=== PATIENT | female | born 1980 | race Native Hawaiian/Other Pacific Islander ===

== ENCOUNTER → 2017-05-15 | Outpatient (CLI) | payer BC ==
[2017-05-15 13:18] LABS: HCT 47.1 % (34.0-46.0); HGB 15.1 gm/dL (11.4-16.0); MCH 27.2 pg (25.0-35.0); MCHC 32.1 g/dL (31.0-37.0); MCV 84.6 fL (80.0-100.0); Mean Platelet Volume 6.9; Platelet Count 280 k/uL (150-450); RBC 5.57 m/uL (3.80-5.40); RDW 13.8 % (11.5-15.5); WBC 8.9 k/uL (3.8-10.6)
[2017-05-15 13:25] LABS: Glucose 77 mg/dL (74-99)
[2017-05-15 20:17] LABS: HIV AB P24 Non-Reactive (Non-Reactive); HIV P24 AG Non-Reactive (Non-Reactive)
[2017-05-16 05:12] LABS: Toxoplasma Antibody (IgG) <3.0 IU/mL (<7.2); Toxoplasma Antibody (IgM) <3.0 AU/mL (<8.0)
== END | disposition home or self-care (01) ==
LOC: LABWHC1 12:13
PROVIDERS: ATTEND Obstetrics & Gynecology
DX: O26.811 Pregnancy related exhaustion and fatigue, first trimester (principal); Z3A.00 Weeks of gestation of pregnancy not specified
CPT/HCPCS: 36415; 82565; 82947; 85027; 86762; 86777; 86778; 86780; 86850; 86900; 86901; 87340; 87390

== ENCOUNTER 2017-06-03 07:21 | Emergency (ER) | payer BC ==
[2017-06-03] MEDS ORDERED: SODIUM CHLORIDE 0.9% 1,000 ML IV STA (08:19)
--- NOTE | 2017-06-03 08:22 | ED ---
General Adult HPI - General Chief complaint: Abdominal Pain Stated complaint: cramping; 13 weeks pg Time Seen by Provider: 06/03/17 08:12 Source: patient, RN notes reviewed Mode of arrival: ambulatory Limitations: no limitations - History of Present Illness Initial comments: 37-year-old female presents to the emergency department with a chief complaint of abdominal cramping and . Patient states that she is about 15 weeks . 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 Patient states that she started to have this cramping about a week ago. There has been no vaginal bleeding or changes in discharge. Patient denies any nausea vomiting any fever or chills. Patient states she was concerned due to her continued cramping so she thought that she should be evaluated. She states that her CAREER SERVICES OFFICER is Dr. Ruiz. She denies any other symptoms with this at this time. She was concerned due to the continued cramping so she thought that she should be evaluated. Patient denies any recent fever, chills, shortness of breath, chest pain, back pain,nausea vomiting, numbness or tingling, dysuria or hematuria, constipation or diarrhea, headaches or visual changes, or any other current symptoms. - Related Data Allergies Allergy/AdvReac Type Severity Reaction Status Date / Time Penicillins Allergy Unknown Verified 06/03/17 07:29 Sulfa (Sulfonamide Allergy Unknown Verified 06/03/17 07:29 Antibiotics) Review of Systems ROS Statement: Those systems with pertinent positive or pertinent negative responses have been documented in the HPI. ROS Other: All systems not noted in ROS Statement are negative. Past Medical History Past Medical History: Asthma History of Any Multi-Drug Resistant Organisms: None Reported Past Surgical History: Section, Orthopedic Surgery Additional Past Surgical History / Comment(s): nasal Past Psychological History: No Psychological Hx Reported Smoking Status: Never smoker Past Alcohol Use History: Occasional Past Drug Use History: None Reported General Exam - General Exam Comments Initial Comments: General: The patient is awake and alert, in no distress, and does not appear acutely ill. Eye: Pupils are equal, round and reactive to light, extra-ocular movements are intact; there is normal conjunctiva bilaterally. No signs of icterus. Ears, nose, mouth and throat: There are moist mucous membranes. Neck: The neck is supple, there is no tenderness. Cardiovascular: There is a regular rate and rhythm. No murmur, rub or gallop is appreciated. Respiratory: Lungs are clear to auscultation, respirations are non-labored, breath sounds are equal. No wheezes, stridor, rales, or rhonchi. Gastrointestinal: Soft, non-distended, non-tender abdomen without masses or organomegaly noted. There is no rebound or guarding present. No CVA tenderness. Bowel sounds are unremarkable. Back: There is no tenderness to palpation in the midline. There is no obvious deformity. No rashes noted. Musculoskeletal: Normal ROM, no tenderness, There is no pedal edema. There is no calf tenderness or swelling. Sensation intact. Pulses equal bilaterally 2+. Neurological: CN II-XII intact, There are no obvious motor or sensory deficits. Coordination appears grossly intact. Speech is normal. Skin: Skin is warm and dry and no rashes or lesions are noted. Psychiatric: Cooperative, appropriate mood & affect, normal judgment. Limitations: no limitations Course Vital Signs 06/03/17 07:26 Temperature 98.1 F Pulse Rate 90 Respiratory 20 Rate Blood Pressure 128/93 O2 Sat by Pulse 100 Oximetry - Reevaluation(s) Reevaluation #1: 06/03/17 09:52 Patient is found to be Rh-. Patient has no bleeding here. At this time patient informed follow-up with her doctor and return if any bleeding occurs. Medical Decision Making - Medical Decision Making 37-year-old female presents to the emergency department with a chief complaint of abdominal cramping in . This and ultrasound is reviewed that does show placenta previa otherwise stable 15 week old fetus. At this time we did discuss that she follow up with her CAREER SERVICES OFFICER and shows appear acutely. We discussed nothing vaginally in to speak with her doctor regarding additional recommendations. We did discuss follow-up we discussed return parameters all questions. Patient stated that she understood and she is agreement this plan. She continues to have no vaginal bleeding. All questions have been answered. She will be discharged. - Lab Data Result diagrams: 06/03/17 08:30 06/03/17 08:30 Lab Results 06/03/17 06/03/17 06/03/17 Range/Units 07:53 08:30 08:30 WBC 7.5 (3.8-10.6) k/uL RBC 4.90 (3.80-5.40) m/uL Hgb 13.5 (11.4-16.0) gm/dL Hct 41.5 (34.0-46.0) % MCV 84.7 (80.0-100.0) fL MCH 27.5 (25.0-35.0) pg MCHC 32.4 (31.0-37.0) g/dL RDW 13.9 (11.5-15.5) % Plt Count 288 (150-450) k/uL Neutrophils % 68 % Lymphocytes % 23 % Monocytes % 5 % Eosinophils % 2 % Basophils % 0 % Neutrophils # 5.1 (1.3-7.7) k/uL Lymphocytes # 1.7 (1.0-4.8) k/uL Monocytes # 0.4 (0-1.0) k/uL Eosinophils # 0.2 (0-0.7) k/uL Basophils # 0.0 (0-0.2) k/uL Sodium (137-145) mmol/L Potassium (3.5-5.1) mmol/L Chloride (98-107) mmol/L Carbon Dioxide (22-30) mmol/L Anion Gap mmol/L BUN (7-17) mg/dL Creatinine (0.52-1.04) mg/dL Est GFR (MDRD) Af Amer (>60 ml/min/1.73 sqM) Est GFR (MDRD) Non-Af (>60 ml/min/1.73 sqM) Glucose (74-99) mg/dL Calcium (8.4-10.2) mg/dL Total Bilirubin (0.2-1.3) mg/dL AST (14-36) U/L ALT (9-52) U/L Alkaline Phosphatase (38-126) U/L Total Protein (6.3-8.2) g/dL Albumin (3.5-5.0) g/dL Urine Color Yellow Urine Appearance Clear (Clear) Urine pH 6.5 (5.0-8.0) Ur Specific [place] 1.017 (1.001-1.035) Urine Protein Trace H (Negative) Urine Glucose (UA) Negative (Negative) Urine Ketones Negative (Negative) Urine Blood Negative (Negative) Urine Nitrite Negative (Negative) Urine Bilirubin Negative (Negative) Urine Urobilinogen <2.0 (<2.0) mg/dL Ur Leukocyte Esterase Negative (Negative) Blood Type O Negative Blood Type Recheck No 06/03/17 Range/Units 08:30 WBC (3.8-10.6) k/uL RBC (3.80-5.40) m/uL Hgb (11.4-16.0) gm/dL Hct (34.0-46.0) % MCV (80.0-100.0) fL MCH (25.0-35.0) pg MCHC (31.0-37.0) g/dL RDW (11.5-15.5) % Plt Count (150-450) k/uL Neutrophils % % Lymphocytes % % Monocytes % % Eosinophils % % Basophils % % Neutrophils # (1.3-7.7) k/uL Lymphocytes # (1.0-4.8) k/uL Monocytes # (0-1.0) k/uL Eosinophils # (0-0.7) k/uL Basophils # (0-0.2) k/uL Sodium 138 (137-145) mmol/L Potassium 4.4 (3.5-5.1) mmol/L Chloride 105 (98-107) mmol/L Carbon Dioxide 24 (22-30) mmol/L Anion Gap 9 mmol/L BUN 9 (7-17) mg/dL Creatinine 0.42 L (0.52-1.04) mg/dL Est GFR (MDRD) Af Amer >60 (>60 ml/min/1.73 sqM) Est GFR (MDRD) Non-Af >60 (>60 ml/min/1.73 sqM) Glucose 80 (74-99) mg/dL Calcium 9.4 (8.4-10.2) mg/dL Total Bilirubin 0.6 (0.2-1.3) mg/dL AST 22 (14-36) U/L ALT 20 (9-52) U/L Alkaline Phosphatase 52 (38-126) U/L Total Protein 6.5 (6.3-8.2) g/dL Albumin 3.8 (3.5-5.0) g/dL Urine Color Urine Appearance (Clear) Urine pH (5.0-8.0) Ur Specific [place] (1.001-1.035) Urine Protein (Negative) Urine Glucose (UA) (Negative) Urine Ketones (Negative) Urine Blood (Negative) Urine Nitrite (Negative) Urine Bilirubin (Negative) Urine Urobilinogen (<2.0) mg/dL Ur Leukocyte Esterase (Negative) Blood Type Blood Type Recheck - Radiology Data Radiology results: report reviewed, image reviewed Disposition Clinical Impression: Abdominal cramping affecting , Placenta previa Disposition: HOME SELF-CARE Condition: Stable Instructions: Placenta Previa (ED) Additional Instructions: Please use medication as discussed. Please follow up with family doctor if symptoms have not improved over the next two days. Please return to the emergency room if your symptoms increase or worsen or for any other concerns. Referrals: Raphael Ruiz MD [STAFF PHYSICIAN] - 1-2 days Time of Disposition: 09:52
[2017-06-03 08:32] LABS: Appearance,Urine Clear (Clear); Bilirubin,Urine Negative (Negative); Blood,Urine Negative (Negative); Color,Urine Yellow; Glucose,Urine (UA) Negative (Negative); Ketones,Urine Negative (Negative); Leukocyte Esterase,Urine Negative (Negative); Nitrite,Urine Negative (Negative); PH, Urine 6.5 (5.0-8.0); Protein,Urine Trace (Negative); Specific Gravity,Urine 1.017 (1.001-1.035); Urobilinogen,Urine <2.0 mg/dL (<2.0)
[2017-06-03 08:46] LABS: Basophils % (A) 0 %; Eosinophils # (A) 0.2 k/uL (0-0.7); Eosinophils % (A) 2 %; HCT 41.5 % (34.0-46.0); HGB 13.5 gm/dL (11.4-16.0); Lymphocytes # (A) 1.7 k/uL (1.0-4.8); Lymphocytes % (A) 23 %; MCH 27.5 pg (25.0-35.0); MCHC 32.4 g/dL (31.0-37.0); MCV 84.7 fL (80.0-100.0); Mean Platelet Volume 6.4; Monocytes # (A) 0.4 k/uL (0-1.0); Monocytes % (A) 5 %; Neutrophils # (A) 5.1 k/uL (1.3-7.7); Neutrophils % (A) 68 %; Platelet Count 288 k/uL (150-450); RDW 13.9 % (11.5-15.5); WBC 7.5 k/uL (3.8-10.6)
[2017-06-03 08:55] LABS: ALT 20 U/L (9-52); AST 22 U/L (14-36); Albumin 3.8 g/dL (3.5-5.0); Alkaline Phosphatase 52 U/L (38-126); Blood Urea Nitrogen 9 mg/dL (7-17); Calcium 9.4 mg/dL (8.4-10.2); Carbon Dioxide 24 mmol/L (22-30); Glucose 80 mg/dL (74-99); Potassium 4.4 mmol/L (3.5-5.1); Sodium 138 mmol/L (137-145); Total Bilirubin 0.6 mg/dL (0.2-1.3); Total Protein 6.5 g/dL (6.3-8.2)
[2017-06-03 08:59] LABS: Anion Gap 9 mmol/L; Chloride 105 mmol/L (98-107)
--- NOTE | 2017-06-03 09:30 | US ---
EXAMINATION TYPE: US OB >= 14 wk fetus DATE OF EXAM: 06/03/2017 COMPARISON: None CLINICAL HISTORY: Pain; EC patient with pelvic pain x 6 days; this via in vitro fertilizati on; TECHNIQUE: Transabdominal (TA) GESTATIONAL AGE / DATING Physician Established: (15 weeks/2 days) EDC: 11/23/2017 Dates by LMP: LMP unknown Dates by First Scan: No previous here; this is first scan Dates by Current Scan: (15 weeks/5 days) EDC: 11/20/2017 Beta HCG (if available): Not available at this time SURVEY IUP: Single PLACENTA: Posterior; anechoic area = 1.9 x 1.5 x 0.5cm is noted inferiorly and posterior to placenta on image # [id number] and may be subchorionic bleed vs. vessels vs. incomplete fusion of amniotic sac with gestational sac wall and is usually fused by 16 weeks gestation. PREVIA: Complete NAOMI: 8.7 cm may be normal for < 16 weeks when > 16 weeks NAOMI is quantified. CERVICAL LENGTH (transabdominal: norm > 3.0cm): 3.2 cm BIOMETRY PRESENTATION: Breech LIE: Longitudinal BPD: 3.1 cm 15 weeks / 6 days HC: 11.6 cm 15 weeks / 5 days AC: 9.4 cm 15 weeks / 4 days FL: 1.8 cm 15 weeks / 2 days ESTIMATED WEIGHT IN GRAMS: 125.2 grams ESTIMATED WEIGHT IN LBS/OZ: 0 lbs. 4 oz. WEIGHT PERCENTAGE BASED ON ESTABLISHED DATES: 51.4% HC/AC: 1.24 Normal FL/AC: 19.19 Normal HEART RATE: 147 bpm RHYTHM: Normal Single, live IUP,15 weeks/5 days, EDC: 11/20/2017, HR 147 bpm; placenta previa is noted early 2nd tri mester. IMPRESSION: VIABLE INTRAUTERINE GESTATION WITH A GESTATIONAL AGE OF 15 WEEKS 5 DAYS +/- 7 DAYS. ESTIMATED DATE OF CONFINEMENT BASED ON THIS EXAMINATION IS 11/20/2017. NOTE IS MADE OF A PLACENTA PREVIA. FURTHER IMAGING IN THE THIRD TRIMESTER WOULD BE SUGGESTED TO [facility] ASSESS PLACENTAL POSITIONING. SMALL LUCENCY BETWEEN THE PLACENTA AND THE POSTERIOR WALL OF THE UTERUS IS OF QUESTIONABLE ETIOLOGY. THIS CAN ALSO BE ASSESSED AT FOLLOW-UP.
[2017-06-03 10:10] VITALS: BP 128/84; PULSE 88; RESP 18; TEMP 97.8
== END 2017-06-03 10:07 | disposition home or self-care (01) ==
LOC: EC 07:21
DX: O26.892 Other specified pregnancy related conditions, second trimester (principal); R10.9 Unspecified abdominal pain; O44.02 Complete placenta previa NOS or without hemorrhage, second trimester; Z67.91 Unspecified blood type, Rh negative; Z88.0 Allergy status to penicillin; Z88.2 Allergy status to sulfonamides; Z98.890 Other specified postprocedural states; Z3A.15 15 weeks gestation of pregnancy
CPT/HCPCS: 36415; 76805; 80053; 81003; 84702; 85025; 86900; 86901; 87086; 96360; 99284

== ENCOUNTER 2017-09-29 16:21 | Outpatient (CLI) | payer BC ==
[2017-09-29 17:20] LABS: Basophils % (A) 0 %; Eosinophils # (A) 0.1 k/uL (0-0.7); Eosinophils % (A) 1 %; HCT 38.4 % (34.0-46.0); Lymphocytes # (A) 1.9 k/uL (1.0-4.8); Lymphocytes % (A) 19 %; MCH 29.3 pg (25.0-35.0); MCHC 33.8 g/dL (31.0-37.0); MCV 86.6 fL (80.0-100.0); Mean Platelet Volume 6.7; Monocytes # (A) 0.7 k/uL (0-1.0); Monocytes % (A) 7 %; Neutrophils # (A) 7.4 k/uL (1.3-7.7); Neutrophils % (A) 71 %; Platelet Count 278 k/uL (150-450); RBC 4.43 m/uL (3.80-5.40); RDW 14.2 % (11.5-15.5); WBC 10.4 k/uL (3.8-10.6)
[2017-09-29 17:22] LABS: Appearance,Urine Clear (Clear); Bacteria,Urine Rare /hpf; Bilirubin,Urine Negative (Negative); Blood,Urine Negative (Negative); Color,Urine Light Yellow; Glucose,Urine (UA) Negative (Negative); Ketones,Urine Negative (Negative); Leukocyte Esterase,Urine Moderate (Negative); Nitrite,Urine Negative (Negative); PH, Urine 6.5 (5.0-8.0); Protein,Urine Negative (Negative); RBC,Urine 1 /hpf (0-5); Specific Gravity,Urine 1.006 (1.001-1.035); Squamous Epithelial Cell,Urine 4 /hpf (0-4); Urobilinogen,Urine <2.0 mg/dL (<2.0); WBC,Urine 4 /hpf (0-5)
[2017-09-29 17:30] LABS: ALT 41 U/L (9-52); AST 36 U/L (14-36); Blood Urea Nitrogen 9 mg/dL (7-17); LDH 545 U/L (313-618); Uric Acid 3.1 mg/dL (3.7-7.4)
[2017-09-29 18:18] VITALS: BP 125/90; PULSE 88; RESP 16; TEMP 97.2
[2017-09-30 18:16] LABS: Collection Time,Urine 24 hrs; Total Protein 24 Hour,Urine 117 mg/24hr (42.0-225.0); Total Volume 24 Hour,Urine 900 mls (800-1800)
--- NOTE | 2017-10-24 16:22 | P.MSEPDOC ---
Presenting Problems - Arrival Data Date of Arrival on Unit: 09/29/17 Time of Arrival on Unit: 16:35 Mode of Transport: Ambulatory Vital Signs - Temperature Temperature: 97.2 F Temperature Source: Temporal Artery Scan - Pulse Right Brachial Pulse Rate: 88 Pulse Assessment Method: Automatic Cuff - Respirations Respiratory Rate: 16 Oxygen Delivery Method: Room Air - Blood Pressure Right Arm Blood Pressure: 125/90 Blood Pressure Mean: 101 Blood Pressure Source: Automatic Cuff Medical Screen Scoring (Post) - Cervical Exam Dilation: Exam Deferred - Uterine Contractions Frequency: N/A Duration: N/A Intensity: N/A - Maternal Vital Signs Maternal Temperature: N/A Maternal Blood Pressure: Diastolic > 89 = 1 Signs of Preeclampsia: N/A Maternal Respirations: N/A - Pain Assessment Pain Scale Used: Numeric (1 - 10) Pain Intensity: 0 - Assessment Heart Rate: 145 Heart Rate - NICHD Category: Category I (Normal) = 0 NST: Reactive Position: N/A Station: N/A - Total Score Total Score (Post): 1 - Post Treatment Level of Risk Post Treatment Level of Risk: Low (0-5) Physician Notification (Post) - Physician Notified Physician Notified Date: 09/29/17 Physician Notified Time: 17:44 Physician/Practitioner Notified:: yobani Spoke With: yobani New Order Received: Yes - Notification Comment Comment: reported labs wnl, reactive nst, bps. pt can be discharged home with a 24 hour urine collection Disposition - Disposition OB Disposition: Discharge to home Discharge Date: 09/29/17 Discharge Time: 18:11 I agree with the RN Medical Screening Exam: Yes Risk & Benefit of care provided described in d/c instruction: Yes Diagnosis: GESTATIONAL HTN W/O SIGNIFICANT PROTEINURIA, THIRD TRIMESTER
== END 2017-09-29 18:11 | disposition home or self-care (01) ==
LOC: FBPOP 16:21
PROVIDERS: ATTEND Obstetrics & Gynecology
DX: O13.3 Gestational [pregnancy-induced] hypertension without significant proteinuria, third trimester (principal)
CPT/HCPCS: 59025; 81001; 81050; 82565; 83615; 84156; 84450; 84460; 84520; 84550; 85025

== ENCOUNTER 2017-10-26 09:39 | Inpatient (IN) | payer BC ==
[~2017-10-26 09:39] MED LIST: CELLULOSE,OXIDIZED 1 EACH EACH MISCELLANE ONE
[2017-10-26] MEDS ORDERED: CITRIC ACID-SODIUM CITRATE 15 ML CUP PO ONE (09:59)
[2017-10-26 10:14] VITALS: BMI 28.1
[2017-10-26] MEDS ORDERED: CLINDAMYCIN 900 MG in DEXTROSE 5% IN WATER 50 ML IVPB STA ×2 (10:26)
[2017-10-26] MEDS ORDERED: LACTATED RINGERS 1,000 ML IV ONE (10:30)
[2017-10-26 10:34] LABS: Basophils % (A) 0 %; Eosinophils # (A) 0.1 k/uL (0-0.7); Eosinophils % (A) 1 %; HCT 39.1 % (34.0-46.0); HGB 13.1 gm/dL (11.4-16.0); Lymphocytes % (A) 20 %; MCHC 33.6 g/dL (31.0-37.0); MCV 86.4 fL (80.0-100.0); Mean Platelet Volume 6.9; Monocytes # (A) 0.5 k/uL (0-1.0); Monocytes % (A) 5 %; Neutrophils # (A) 7.4 k/uL (1.3-7.7); Neutrophils % (A) 72 %; Platelet Count 258 k/uL (150-450); RBC 4.52 m/uL (3.80-5.40); RDW 14.6 % (11.5-15.5); WBC 10.3 k/uL (3.8-10.6)
--- NOTE | 2017-10-26 10:37 | P.HPOB ---
History of Present Illness H&P Date: 10/26/17 Chief Complaint: Hypertension This patient is a pleasant 37-year-old 6 para 2 female estimated date of confinement 11/23/2017 estimated gestational age 36-0/7 weeks gestation who called the office this morning with complaints of elevated blood pressure of 170 /100 at work. Patient's history is such that she's been followed by myself and Dr. Conte for hypertension. Most recently she was at maternal- medicine last Monday and had a elevated blood pressure and preeclampsia evaluation was negative at that time. Dr. Conte recommended that she be delivered at 37 weeks or earlier if patient became symptomatic. Patient is now having elevated blood pressures with diastolics in the 100s and headache with epigastric pain. Preeclampsia labs are pending at this time. Plan is to proceed with delivery immediately secondary to evolving preeclampsia. Patient's is also complicated by advanced maternal age. Patient has had a normal level III ultrasound but declined other genetic testing. Patient's had 2 previous sections, therefore plan is to proceed with delivery by repeat C- section. Review of Systems Constitutional: Denies chills, Denies fever Gastrointestinal: Reports heartburn Genitourinary: Reports Menstruation: Reports amenorrhea Past Medical History Past Medical History: Asthma History of Any Multi-Drug Resistant Organisms: None Reported Past Surgical History: Section, Orthopedic Surgery Additional Past Surgical History / Comment(s): nasal, ovarian cyst aspiration, hysterostomy Past Anesthesia/Blood Transfusion Reactions: No Reported Reaction Past Psychological History: No Psychological Hx Reported Smoking Status: Never smoker Past Alcohol Use History: None Reported Past Drug Use History: None Reported - Past Family History Sister(s) Family Medical History: Hypertension Mother Family Medical History: Rheumatoid Arthritis (RA) Additional Family Medical History / Comment(s): glaucoma Medications and Allergies Home Medications Medication Instructions Recorded Confirmed Type Pnv No.95/Ferrous Fum/Folic AC 1 tab PO DAILY 10/26/17 10/26/17 History [ Multivitamin Tablet] Allergies Allergy/AdvReac Type Severity Reaction Status Date / Time Penicillins Allergy Unknown Verified 09/29/17 16:48 Sulfa (Sulfonamide Allergy Unknown Verified 09/29/17 16:48 Antibiotics) Exam Vital Signs Temp Pulse Resp BP Pulse Ox 10/26/17 10:08 96.5 F L 90 16 151/96 98 Intake and Output 10/25/17 10/26/17 10/26/17 22:59 06:59 14:59 Other: Weight 74.389 kg - OBG Physical Exam Abdomen: bowel sounds normal, no diffuse tenderness, no bruit present, no guarding noted, no hepatomegaly, no splenomegaly, no mass Vulva: both: normal Uterus: enlarged (Fundal height 35 cm) Results blood work shows she is O-, rubella immune, RPR nonreactive, hepatitis B negative, HIV nonreactive, Rhogam was given on August 30, ultrasounds have been normal, group B strep was negative, Glucola was normal. Assessment and Plan Assessment: This is a pleasant 37-year-old 6 para 2 female 36-0/7 weeks gestation with severe preeclampsia. Patient's had 2 previous sections, therefore plan is to proceed with delivery at this time by repeat section. Patient does not want a tubal ligation. she will be placed on magnesium sulfate and antihypertensives if indicated. Patient I discussed the surgery and risks including risks of infection, bleeding, possible injury bowel, bladder, vessels, and/or other organs. All the patient' s questions are answered and a written consent is obtained. (1) Third trimester Current Visit: Yes Status: Acute Code(s): Z34.93 - ENCNTR FOR SUPRVSN OF NORMAL PREG, UNSP, THIRD TRIMESTER SNOMED Code(s): 86156175 (2) Severe pre-eclampsia Current Visit: Yes Status: Acute Code(s): O14.10 - SEVERE PRE-ECLAMPSIA, UNSPECIFIED TRIMESTER SNOMED Code(s): 71904118 (3) Previous delivery affecting Current Visit: Yes Status: Acute Code(s): O34.219 - MATERNAL CARE FOR UNSP TYPE SCAR FROM PREVIOUS DEL SNOMED Code(s): 535660167 (4) Rh negative state in antepartum period Current Visit: Yes Status: Acute Code(s): O09.899 - SUPERVISION OF OTHER HIGH RISK PREGNANCIES, UNSP TRIMESTER; Z67.91 - UNSPECIFIED BLOOD TYPE, RH NEGATIVE SNOMED Code(s): 372982421
[2017-10-26 10:46] LABS: Appearance,Urine Clear (Clear); Bilirubin,Urine Negative (Negative); Blood,Urine Negative (Negative); Color,Urine Yellow; Glucose,Urine (UA) Negative (Negative); Ketones,Urine Negative (Negative); Leukocyte Esterase,Urine Negative (Negative); Nitrite,Urine Negative (Negative); Protein,Urine Trace (Negative); Specific Gravity,Urine 1.011 (1.001-1.035); Urobilinogen,Urine <2.0 mg/dL (<2.0)
[2017-10-26 10:47] LABS: Blood Urea Nitrogen 9 mg/dL (7-17)
[2017-10-26 10:48] LABS: ALT 28 U/L (9-52); AST 27 U/L (14-36); LDH 499 U/L (313-618); Uric Acid 4.5 mg/dL (3.7-7.4)
[2017-10-26] MEDS ORDERED: OXYTOCIN 10 UNIT/ML 1 ML VIAL ONE (10:59)
[2017-10-26] MEDS ORDERED: ONDANSETRON 4 MG/2 ML VIAL ONE (10:59)
[2017-10-26] MEDS ORDERED: MORPHINE SULFATE (PF) 0.3 MG/0.3 ML SYR ONE (10:59)
[2017-10-26] MEDS ORDERED: NALBUPHINE 10 MG/ML VIAL (10ML MDV) ONE (10:59)
[2017-10-26 11:01] LABS: INR 0.9 (<1.2); Prothrombin Time 9.3 sec (9.0-12.0)
[2017-10-26 11:03] LABS: Partial Thromboplastin Time 21.7 sec (22.0-30.0)
[2017-10-26] MEDS ORDERED: Rhogam IMMUNE GLOBULIN 1,500 UNIT/1 ML IM ONE (11:45)
[2017-10-26] MEDS ORDERED: METOCLOPRAMIDE 5 MG/ML 2 ML VIAL IVP PRN (11:45)
[2017-10-26] MEDS ORDERED: ONDANSETRON 4 MG/2 ML VIAL IVP PRN (11:45)
[2017-10-26] MEDS ORDERED: NALOXONE 0.4 MG/ML 1 ML VIAL IV PRN (11:45)
[2017-10-26] MEDS ORDERED: LANOLIN CREAM 5 GM TUBE TOPICAL PRN (11:45)
[2017-10-26] MEDS ORDERED: SIMETHICONE 80 MG CHEWABLE PO PRN (11:45)
[2017-10-26] MEDS ORDERED: ZOLPIDEM 5 MG TAB PO PRN (11:45)
[2017-10-26] MEDS ORDERED: OXYTOCIN 20 UNITS/1000 ML NS 1,000 ML IV SCH (11:45)
[2017-10-26] MEDS ORDERED: diphenhydrAMINE 50 MG/ML 1 ML VIAL IVP PRN (11:45)
[2017-10-26] MEDS ORDERED: diphenhydrAMINE 25 MG CAP PO PRN (11:45)
[2017-10-26] MEDS ORDERED: MAGNESIUM SULFATE-WATER PMX 4 GM in WATER FOR INJECTION 1 50ML.BAG IVPB STA (11:48)
--- NOTE | 2017-10-26 11:59 | P.OP ---
Date of Procedure: 10/26/17 Preoperative Diagnosis: #1: 36-0/7 week intrauterine . #2: Previous section 2. #3: Severe preeclampsia Postoperative Diagnosis: #1: Same. #2: Dense lower uterine segment adhesions Procedure(s) Performed: Repeat low transverse section Anesthesia: spinal Surgeon: Raphael Ruiz Boatbuilder Wood #1: Velia Gonzalez Estimated Blood Loss (ml): 600 Pathology: other (Placenta) Condition: stable Disposition: floor Indications for Procedure: Please see dictated H&P for intimate details of this patient's admission. Brief summary is a pleasant 37-year-old 6 para 2 female 36-0/7 weeks gestation has been followed for gestational hypertension. Patient most recently saw maternal medicine had preeclampsia labs which were normal but had elevated blood pressure and recommendation proceed with delivery at 37 weeks unless worsening blood pressure or symptomatology. Patient's developed a headache and epigastric pain and blood pressure in her office this morning was 170/100. Blood pressures here are similar and at this time plan is to proceed with delivery by repeat section. Patient I discussed the surgery and risks including risks of infection, bleeding, possible injury bowel, bladder, vessels, and/or other organs. We also discussed increased risk of DVT and pulmonary embolism. All the patient's questions were answered written consent was obtained. Operative Findings: This is a vigorous viable female Apgars 8 and 9 delivery time was 1118 hrs. Infant has spontaneous respirations and good cry and grossly appeared normal. Nuchal cord 1. Patient had very dense adhesions in the lower uterine segment near the bladder. Please see dictated operative note Description of Procedure: This patient has a Chandler catheter placed to straight drain. She subsequently taken to the operating room where she sat up and spinal anesthetic is administered without incident. With an adequate level of anesthesia she has abdominal prep and drape. Previous Pfannenstiel skin incision is incised. A second scalpel is taken down the fascia the fascia scored with a knife. Fascial incision extended bilaterally using the Price scissors. Fascia is then dissected sharply off the rectus muscles. Rectus muscles are and I into the peritoneum bluntly. This time is noted have some omental adhesions to the anterior abdominal wall which are cleared. Inspection of the lower uterine segment shows dense adhesions the bladder and lower uterine segment. I do some sharp dissection in this area however it is evident that is immune possible to make an incision in this area safely. For this reason I make an incision higher. This is still a low transverse uterine incision. Hemostat is used to enter the uterine cavity bluntly. There is loss of clear fluid. Incision is extended bluntly. Infant's head is then guided through the incision with fundal pressure delivered. The nuchal cord which is easily reduced. Then delivery anterior and posterior shoulder and rest this 's body. This is a vigorous viable female Apgars are 8 and 9 delivery time is 1118 hrs. After delivery of the infant the umbilical cord is doubly clamped and cut appears to be trivascular. Cord blood is obtained for Rh status. Placenta is then manually extracted intact. Uterus is then externalized. Uterine incision and blood demarcated with Leyva clamps and then closed in 0 Vicryl running locked fashion 2 layers. Additional [id number] stitches placed for added hemostasis. Inspection of the tubes and ovaries appear normal. Above noted omental adhesions and dense lower uterine segment adhesions are noted. Also hemostatic. Uterus placed back into the abdomen and inspection fluid is removed. The parietal peritoneum is not able to be closed due to previous surgery. The rectus muscles are then reapproximated using 0 Vicryl interrupted fashion. Fascia is then closed using 0 PDS. Fascial incision is intact and hemostatic. Subcutaneous tissues and closed using a 3-0 Vicryl. Skin is and closed using delmi. Excellent hemostasis is noted. There are no complications. Patient is taken to her birthing suite in satisfactory condition.
[2017-10-26] MEDS ORDERED: MAGNESIUM SULFATE-WATER PMX 20 GM in WATER FOR INJECTION 1 500ML.BAG IV SCH (12:00)
--- NOTE | 2017-10-26 13:03 | P.MSEPDOC ---
Presenting Problems - Arrival Data Date of Arrival on Unit: 10/26/17 Time of Arrival on Unit: 09:45 Mode of Transport: Bed - Complaint OB-Reason for Admission/Chief Complaint: PIH Medical History - Information : 6 Para: 2 Term: 2 : 0 Abortions: Spontaneous or Elective: 3 Number of Living Children: 2 - Gestational Age Gestational Age by NELSON (wks/days): 36 Weeks and 0 Days Vital Signs - Temperature Temperature: 96.6 F Temperature Source: Temporal Artery Scan - Pulse Right Sitting Pulse Rate: 78 Pulse Assessment Method: Automatic Cuff - Respirations Respiratory Rate: 16 Oxygen Delivery Method: Room Air O2 Sat by Pulse Oximetry: 97 - Blood Pressure Right Arm Blood Pressure: 132/82 Blood Pressure Mean: 98 Blood Pressure Source: Automatic Cuff Physician Notification (Pre) - Notification Comment Comment: Dr. Ruiz assessed at bedside, admit for pih, repeat section I agree with the RN Medical Screening Exam: Yes Risk & Benefit of care provided described in d/c instruction: Yes Diagnosis: GESTATIONAL HTN W/O SIGNIFICANT PROTEINURIA, THIRD TRIMESTER
[2017-10-26] MEDS: KETOROLAC 30 MG/ML 1 ML VIAL IVP PRN ×2 (13:29→21:50)
[2017-10-26] MEDS: SENNOSIDES-DOCUSATE SODIUM 1 EACH TAB PO SCH (21:50)
[2017-10-26] MEDS: LACTATED RINGERS 1,000 ML IV SCH (21:52)
[2017-10-27] MEDS ORDERED: ACETAMINOPHEN TAB 325 MG TAB ONE (04:40)
[2017-10-27] MEDS ORDERED: KETOROLAC 30 MG/ML 1 ML VIAL ONE (04:40)
--- NOTE | 2017-10-27 06:00 | P.PNOBGPC ---
Subjective - Subjective Patient reports: Reports appetite normal, Reports voiding normally, Reports pain well controlled, Reports ambulating normally : doing well Objective - Vital Signs Latest vital signs: Vital Signs Temp Pulse Resp BP Pulse Ox 10/27/17 05:00 88 16 134/93 96 10/26/17 21:56 90 18 145/92 97 10/26/17 21:00 93 18 149/96 10/26/17 19:30 96.5 F L 88 18 142/94 10/26/17 17:00 96.3 F L 84 16 142/83 10/26/17 16:00 97.9 F 54 L 16 147/89 98 10/26/17 15:00 78 16 136/84 100 10/26/17 14:00 96.5 F L 73 16 151/103 97 10/26/17 13:43 96.4 F L 74 16 154/98 97 10/26/17 13:13 74 16 135/89 97 10/26/17 13:03 96.6 F L 78 16 132/82 97 10/26/17 12:43 76 16 129/89 97 10/26/17 12:28 78 16 132/82 97 10/26/17 12:13 78 16 129/78 97 10/26/17 11:58 84 16 124/73 97 10/26/17 11:43 96.6 F L 87 16 116/66 97 10/26/17 10:08 96.5 F L 90 16 151/96 98 Intake and Output 10/26/17 10/26/17 10/27/17 14:59 22:59 06:59 Intake Total 1800 800 214 Output Total 1250 650 900 Balance 550 150 -686 Intake: IV 800 Intake, IV Titration 1000 800 214 Amount Lactated Ringers 1,000 ml 214 @ 125 mls/hr IV .Q8H JEREMÍAS Rx#:[id number] Magnesium Sulfate-Water 200 Pmx 20 gm In Water For Injection 1 500ml.bag @ 2 GM/HR 50 mls/hr IV .Q10H JEREMÍAS Rx#:[id number] Magnesium Sulfate-Water 50 Pmx 4 gm In Water For Injection 1 50ml.bag @ 150 mls/hr IVPB ONCE STA Rx#:[id number] Oxytocin 20 Units/1000 ml 1000 550 Ns 1,000 ml @ Per Protocol IV .Q0M JEREMÍAS Rx#: [id number] Output: Urine 650 650 900 Estimated Blood Loss 600 Other: Weight 74.389 kg - Exam Lungs: bilateral: normal Chest: Normal S1, Normal S2 Extremities: Present: normal Abdomen: Present: normal appearance, soft. Absent: distention, tenderness Incision: Present: normal, dry, intact Uterus: Present: normal, firm - Labs Labs: Abnormal Lab Results - Last 24 Hours (Table) 10/26/17 10/26/17 10/26/17 Range/Units 09:45 10:15 10:15 APTT 21.7 L (22.0-30.0) sec Creatinine 0.49 L (0.52-1.04) mg/dL Urine Protein Trace H (Negative) Assessment and Plan Assessment: Postoperative day #1. Patient is resting without new complaints. Blood pressures are 130 to 140 over 80s to 90s. At this point they have not required treatment. Urine output is excellent. Incision is intact and dry. Patient has eaten some regular diet. Plan today is to check a CBC, discontinue her Chandler catheter, continue to closely watch her blood pressures, and continue routine postoperative care. (1) Third trimester Current Visit: Yes Status: Acute Code(s): Z34.93 - ENCNTR FOR SUPRVSN OF NORMAL PREG, UNSP, THIRD TRIMESTER SNOMED Code(s): 45615387 (2) Severe pre-eclampsia Current Visit: Yes Status: Acute Code(s): O14.10 - SEVERE PRE-ECLAMPSIA, UNSPECIFIED TRIMESTER SNOMED Code(s): 69594586 (3) Previous delivery affecting Current Visit: Yes Status: Acute Code(s): O34.219 - MATERNAL CARE FOR UNSP TYPE SCAR FROM PREVIOUS DEL SNOMED Code(s): 924576475 (4) Rh negative state in antepartum period Current Visit: Yes Status: Acute Code(s): O09.899 - SUPERVISION OF OTHER HIGH RISK PREGNANCIES, UNSP TRIMESTER; Z67.91 - UNSPECIFIED BLOOD TYPE, RH NEGATIVE SNOMED Code(s): 273867766
[2017-10-27 07:13] LABS: Basophils % (A) 0 %; Eosinophils # (A) 0.1 k/uL (0-0.7); Eosinophils % (A) 1 %; HCT 36.3 % (34.0-46.0); HGB 12.1 gm/dL (11.4-16.0); Lymphocytes # (A) 1.6 k/uL (1.0-4.8); Lymphocytes % (A) 12 %; MCH 29.1 pg (25.0-35.0); MCHC 33.4 g/dL (31.0-37.0); MCV 87.3 fL (80.0-100.0); Mean Platelet Volume 6.6; Monocytes # (A) 0.6 k/uL (0-1.0); Monocytes % (A) 4 %; Neutrophils # (A) 10.2 k/uL (1.3-7.7); Neutrophils % (A) 81 %; Platelet Count 241 k/uL (150-450); RBC 4.16 m/uL (3.80-5.40); RDW 14.6 % (11.5-15.5); WBC 12.6 k/uL (3.8-10.6)
[2017-10-27] MEDS: SENNOSIDES-DOCUSATE SODIUM 1 EACH TAB PO SCH ×2 (08:48→19:57)
[2017-10-27] MEDS: KETOROLAC 30 MG/ML 1 ML VIAL IVP PRN ×2 (12:00→19:56)
[2017-10-27] MEDS: LACTATED RINGERS 1,000 ML IV SCH (13:44)
[2017-10-27] MEDS: ACETAMINOPHEN TAB 325 MG TAB PO PRN (21:20)
[2017-10-28] MEDS: KETOROLAC 30 MG/ML 1 ML VIAL IVP PRN (03:47)
--- NOTE | 2017-10-28 07:22 | P.PNOBGPC ---
Subjective - Subjective Patient reports: Reports appetite normal, Reports voiding normally, Reports pain well controlled, Reports ambulating normally : doing well Objective - Vital Signs Latest vital signs: Vital Signs Temp Pulse Resp BP Pulse Ox 10/28/17 04:00 98.0 F 91 16 143/93 10/28/17 00:00 98.6 F 87 16 142/91 10/27/17 21:22 99.1 F 10/27/17 20:00 99.6 F 104 H 16 140/88 98 10/27/17 15:56 98.9 F 95 17 135/90 98 10/27/17 12:00 97.8 F 82 17 134/84 98 10/27/17 08:39 97.1 F L 101 H 17 132/85 98 Intake and Output 10/27/17 10/28/17 10/28/17 22:59 06:59 14:59 Intake Total 650 Balance 650 Intake: Oral 650 Other: # Voids 2 1 - Exam Lungs: bilateral: normal Chest: Normal S1, Normal S2 Extremities: Present: normal Abdomen: Present: normal appearance, soft. Absent: distention, tenderness Incision: Present: normal, dry, intact Uterus: Present: normal, firm - Labs Labs: Abnormal Lab Results - Last 24 Hours (Table) 10/27/17 Range/Units 06:51 WBC 12.6 H (3.8-10.6) k/uL Neutrophils # 10.2 H (1.3-7.7) k/uL Assessment and Plan Assessment: Post operative day #2. Patient is resting without complaints. Blood pressures 140s over 90s. Incision is intact and dry uterus is firm nontender. Plan today is to continue routine postoperative care most likely discharge home tomorrow. (1) Third trimester Current Visit: Yes Status: Acute Code(s): Z34.93 - ENCNTR FOR SUPRVSN OF NORMAL PREG, UNSP, THIRD TRIMESTER SNOMED Code(s): 95450244 (2) Severe pre-eclampsia Current Visit: Yes Status: Acute Code(s): O14.10 - SEVERE PRE-ECLAMPSIA, UNSPECIFIED TRIMESTER SNOMED Code(s): 19332512 (3) Previous delivery affecting Current Visit: Yes Status: Acute Code(s): O34.219 - MATERNAL CARE FOR UNSP TYPE SCAR FROM PREVIOUS DEL SNOMED Code(s): 702844733 (4) Rh negative state in antepartum period Current Visit: Yes Status: Acute Code(s): O09.899 - SUPERVISION OF OTHER HIGH RISK PREGNANCIES, UNSP TRIMESTER; Z67.91 - UNSPECIFIED BLOOD TYPE, RH NEGATIVE SNOMED Code(s): 258677891
[2017-10-28] MEDS: ACETAMINOPHEN TAB 325 MG TAB PO PRN ×2 (08:46→19:23)
[2017-10-28] MEDS: SENNOSIDES-DOCUSATE SODIUM 1 EACH TAB PO SCH ×2 (08:47→21:08)
[2017-10-28] MEDS: IBUPROFEN 600 MG TAB PO PRN (16:06)
[2017-10-28] MEDS: LABETALOL 100 MG TAB PO PRN (16:41)
[2017-10-28] MEDS: LACTATED RINGERS 1,000 ML IV SCH (21:11)
[2017-10-29] MEDS: IBUPROFEN 600 MG TAB PO PRN ×2 (06:56)
--- NOTE | 2017-10-29 07:14 | P.PNOBGPC ---
Subjective - Subjective Patient reports: Reports appetite normal, Reports voiding normally, Reports pain well controlled, Reports ambulating normally : doing well Objective - Vital Signs Latest vital signs: Vital Signs Temp Pulse Resp BP Pulse Ox 10/29/17 03:48 94 133/88 10/29/17 00:00 98.7 F 99 18 132/85 99 10/28/17 20:00 98.7 F 96 16 132/84 97 10/28/17 17:43 139/94 10/28/17 16:40 149/100 10/28/17 16:00 98.3 F 91 16 154/105 10/28/17 12:13 98.3 F 95 17 134/89 99 10/28/17 09:00 97.9 F 89 16 142/98 99 - Exam Lungs: bilateral: normal Chest: Normal S1, Normal S2 Extremities: Present: normal Abdomen: Present: normal appearance, soft. Absent: distention, tenderness Incision: Present: normal, dry, intact Uterus: Present: normal, firm Assessment and Plan Assessment: Post operative day #3. Patient is resting without complaints wishes to go home. Patient did require 1 dose of labetalol yesterday therefore I'm going to send her home on labetalol 100 mg by mouth twice a day. Patient will continue routine care follow up with me in 1 week for incision and blood pressure check. (1) Third trimester Current Visit: Yes Status: Acute Code(s): Z34.93 - ENCNTR FOR SUPRVSN OF NORMAL PREG, UNSP, THIRD TRIMESTER SNOMED Code(s): 60823631 (2) Severe pre-eclampsia Current Visit: Yes Status: Acute Code(s): O14.10 - SEVERE PRE-ECLAMPSIA, UNSPECIFIED TRIMESTER SNOMED Code(s): 43632533 (3) Previous delivery affecting Current Visit: Yes Status: Acute Code(s): O34.219 - MATERNAL CARE FOR UNSP TYPE SCAR FROM PREVIOUS DEL SNOMED Code(s): 948934197 (4) Rh negative state in antepartum period Current Visit: Yes Status: Acute Code(s): O09.899 - SUPERVISION OF OTHER HIGH RISK PREGNANCIES, UNSP TRIMESTER; Z67.91 - UNSPECIFIED BLOOD TYPE, RH NEGATIVE SNOMED Code(s): 786916946
--- NOTE | 2017-10-29 07:20 | P.DS ---
Providers Date of admission: 10/26/17 09:56 Expected date of discharge: 10/29/17 Attending physician: Raphael Ruiz - Discharge Diagnosis(es) (1) Third trimester Current Visit: Yes Status: Acute (2) Severe pre-eclampsia Current Visit: Yes Status: Acute (3) Previous delivery affecting Current Visit: Yes Status: Acute (4) Rh negative state in antepartum period Current Visit: Yes Status: Acute Hospital Course: Please see dictated H&P for intimate details of this patient's admission. Brief summary is a pleasant 37-year-old multipara risks patient is admitted for severe preeclampsia and repeat section. Patient undergoes above-named surgery. Postoperative patient does well does require 1 dose of labetalol for blood pressure control. By postoperative 3 patient's family urinating without difficulty and felt to be stable for discharge home follow up with me in 1 week. Procedures: Repeat low transverse section Patient Condition at Discharge: Good Plan - Discharge Summary New Discharge Prescriptions: New Ibuprofen [Motrin] 600 mg PO Q6HR PRN #40 tab PRN Reason: Mild Pain Or Fever >= 100.5 Labetalol [Trandate] 100 mg PO BID 20 Days #40 tab No Action Pnv No.95/Ferrous Fum/Folic AC [ Multivitamin Tablet] 1 tab PO DAILY Discharge Medication List Pnv No.95/Ferrous Fum/Folic AC [ Multivitamin Tablet] 1 tab PO DAILY [History] Ibuprofen [Motrin] 600 mg PO Q6HR PRN #40 tab 10/29/17 [Rx] Labetalol [Trandate] 100 mg PO BID 20 Days #40 tab 10/29/17 [Rx] Follow up Appointment(s)/Referral(s): Raphael Ruiz MD [STAFF PHYSICIAN] - 11/08/17 8:45 am (Patient also has a 6 weeks appointment on December 07 at 3:15 PM.) Patient Instructions/Handouts: (DC) Activity/Diet/Wound Care/Special Instructions: No heavy lifting or strenuous activity for 6 weeks. No intercourse or anything per vagina for 6 weeks. Please call if any fever, chills, excessive vaginal bleeding, and/or abdominal pain. Discharge Disposition: HOME SELF-CARE
[2017-10-29] MEDS: LABETALOL 100 MG TAB PO PRN (08:04)
[2017-10-29] MEDS: SENNOSIDES-DOCUSATE SODIUM 1 EACH TAB PO SCH (08:04)
[2017-10-29 08:18] VITALS: BP 141/97; PULSE 93; RESP 16; TEMP 98.1
== END 2017-10-29 10:05 | disposition home or self-care (01) | DRG 766 ==
LOC: FBPOP 09:39 → 4FBP 09:56
PROVIDERS: ADMIT Obstetrics & Gynecology; ATTEND Obstetrics & Gynecology
PROC: 0UN90ZZ Release Uterus, Open Approach (ICD-10-PCS; 2017-10-26)
PROC: 10D00Z1 Extraction of Products of Conception, Low, Open Approach (ICD-10-PCS; principal; 2017-10-26 11:00)
DX: O14.14 Severe pre-eclampsia complicating childbirth (principal); J45.909 Unspecified asthma, uncomplicated; O34.211 Maternal care for low transverse scar from previous cesarean delivery; O69.81X0 Labor and delivery complicated by cord around neck, without compression, not applicable or unspecified; Z3A.36 36 weeks gestation of pregnancy; Z37.0 Single live birth; Z67.91 Unspecified blood type, Rh negative; Z82.49 Family history of ischemic heart disease and other diseases of the circulatory system; R12 Heartburn; Z82.61 Family history of arthritis; Z88.0 Allergy status to penicillin; Z88.2 Allergy status to sulfonamides; N73.6 Female pelvic peritoneal adhesions (postinfective); O09.523 Supervision of elderly multigravida, third trimester; O26.893 Other specified pregnancy related conditions, third trimester
CPT/HCPCS: 59025; 81003; 82565; 83615; 84450; 84460; 84520; 84550; 85025; 85461; 85610; 85730; 86850; 86870; 86880; 86900; 86901; 88307; 99215

== ENCOUNTER → 2024-06-06 | Outpatient (CLI) | payer OTHER ==
--- NOTE | 2024-06-06 14:08 | XR ---
EXAMINATION TYPE: XR hand complete RT, XR wrist complete RT DATE OF EXAM: 06/06/2024 1:59 PM COMPARISON: None. CLINICAL INDICATION: Female, 44 years old with history of S60.221A, S60.211A, pain TECHNIQUE: Frontal, lateral and oblique images of the right wrist and hand are obtained. A fourth sc aphoid view right wrist is acquired. FINDINGS: There is a 3 mm round lucent lesion in the midportion of the scaphoid. Possible subchondral cyst. There is no acute fracture/dislocation evident in the right wrist or hand. The joint spaces in the right hand appear within normal limits. The overlying soft tissue appears unremarkable. IMPRESSION: There is no acute fracture or dislocation in the right wrist or hand. [facility], , 06/06/2024 2:06 PM
== END | disposition home or self-care (01) ==
LOC: RADXRMAIN 13:38
PROVIDERS: ATTEND Emergency Medicine
DX: S60.221A Contusion of right hand, initial encounter (principal); S60.211A Contusion of right wrist, initial encounter; X58.XXXA Exposure to other specified factors, initial encounter

== ENCOUNTER → 2024-06-11 | Outpatient (CLI) | payer OTHER ==
--- NOTE | 2024-06-11 14:22 | XR ---
EXAMINATION TYPE: XR hand complete RT DATE OF EXAM: 06/11/2024 1:45 PM COMPARISON: None CLINICAL INDICATION: Female, 44 years old with history of SLIP AND FALL ON ICE; PHH, pain TECHNIQUE: XR hand complete RT 3 views were obtained. FINDINGS: Normal alignment of the visualized joints. No acute osseous pathology is identified. No e vidence of soft tissue swelling. Multifocal degeneration changes with joint space narrowing and osteo phyte formation. IMPRESSION: No acute osseous pathology. 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 [facility], , 06/11/2024 2:20 PM
== END | disposition home or self-care (01) ==
LOC: RADXRMAIN 13:25
PROVIDERS: ATTEND Emergency Medicine
DX: M19.041 Primary osteoarthritis, right hand (principal); W01.0XXA Fall on same level from slipping, tripping and stumbling without subsequent striking against object, initial encounter